=== PATIENT | female | born 1960 | race Hispanic/Latino ===

== ENCOUNTER 2018-12-16 14:02 | Outpatient (CLI) | payer OTHER ==
--- NOTE | 2018-12-16 15:19 | ULT ---
EXAM: BILATERAL CAROTID DUPLEX ULTRASOUND INCLUDING COLOR AND SPECTRAL DOPPLER IMAGIN12/16/18 HISTORY: Left carotid bruit. FINDINGS: Minimal plaque visualized at the bifurcation region. PSV right ICA 79 cm/s. EDV 28 cm/s. ICA/CCA ratio 0.9. PSV left ICA 80 cm/s. EDV 31 cm/s. ICA/CCA ratio 0.8. Vertebral flow is antegrade. IMPRESSION: No hemodynamically significant stenosis. 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 POS: [facility]RE
== END 2018-12-16 14:03 | disposition home or self-care (01) ==
LOC: NAV ULT 14:02
PROVIDERS: ATTEND Internal Medicine
DX: R09.89 Other specified symptoms and signs involving the circulatory and respiratory systems (principal); I65.23 Occlusion and stenosis of bilateral carotid arteries
CPT/HCPCS: 93880